=== PATIENT | female | born 1960 | race African-American/Black ===

== ENCOUNTER 2017-11-15 10:50 | Inpatient (IN) | payer OTHER ==
--- NOTE | 2017-11-15 14:15 | HP ---
Admission ROS [facility] Chief Complaint: i want to go to rehab Allergies/Adverse Reactions: Allergies Allergy/AdvReac Type Severity Reaction Status Date / Time Penicillins Allergy Verified 11/15/17 14:11 History of Present Illness: 56 years old female with long history of cocaine and nicotine dependence has hypertension positive ppd and depression is admitted to rehab Exam Limitations: No Limitations - Ebola screening Have you traveled outside of the country in the last 21 days: No Have you had contact with anyone from an Ebola affected area: No Have you been sick,other than usual withdrawal symptoms: No Do you have a fever: No - Review of Systems Constitutional: Loss of Appetite, Unintentional Wgt. Loss, Unexplained wgt Loss EENT: reports: No Symptoms Reported Respiratory: reports: No Symptoms reported Cardiac: reports: No Symptoms Reported GI: reports: No Symptoms Reported : reports: No Symptoms Reported Musculoskeletal: reports: No Symptoms Reported Integumentary: reports: No Symptoms Reported Neuro: reports: No Symptoms reported Endocrine: reports: No Symptoms Reported Hematology: reports: No Symptoms Reported Psychiatric: reports: Judgement Intact, Orientated x3, Depressed Other Systems: Reviewed and Negative Patient History - Patient Medical History Hx Anemia: No Hx Asthma: No Hx Chronic Obstructive Pulmonary Disease (COPD): No Hx Cancer: No Hx Cardiac Disorders: No Hx Congestive Heart Failure: No Hx Hypertension: Yes Hx Hypercholesterolemia: No Hx Pacemaker: No HX Cerebrovascular Accident: No Hx Seizures: No Hx Dementia: No Hx Diabetes: No Hx Gastrointestinal Disorders: No Hx Liver Disease: No Hx Genitourinary Disorders: No Hx Sexually Transmitted Disorders: No Hx Renal Disease (ESRD): No Hx Thyroid Disease: No Hx Human Immunodeficiency Virus (HIV): No Hx Hepatitis C: No Hx Depression: Yes Hx Suicide Attempt: No Hx Bipolar Disorder: No Hx Schizophrenia: No - Patient Surgical History Past Surgical History: Yes Hx Neurologic Surgery: No Hx Cataract Extraction: No Hx Cardiac Surgery: No Hx Lung Surgery: No Hx Breast Surgery: No Hx Breast Biopsy: No Hx Abdominal Surgery: No Hx Appendectomy: No Hx Cholecystectomy: No Hx Genitourinary Surgery: No Hx Section: No Hx Orthopedic Surgery: No Hx Hysterectomy: No Other Surgical History: 2004 endometric cyst removed Anesthesia Reaction: No - PPD History Previous Implant?: Yes Documented Results: Positive w/proof Implanted On Prior R Admission?: No PPD to be Administered?: No - Reproductive History Patient is a Female of Child Bearing Age (11 -55 yrs old): No Last Menstrual Period: 11/15/08 Patient : No - Smoking Cessation Smoking history: Current every day smoker Have you smoked in the past 12 months: Yes Aproximately how many cigarettes per day: 15 Cigars Per Day: 0 Hx Chewing Tobacco Use: No Initiated information on smoking cessation: Yes 'Breaking Loose' booklet given: 11/15/17 - Substance & Tx. History Hx Alcohol Use: No Hx Substance Use: Yes Substance Use Type: Cocaine Hx Substance Use Treatment: Yes (2012 [facility]) - Substances Abused Cocaine Route: Smoking Frequency: Daily Amount used: 70$ Age of first use: 25 Date of Last Use: 11/15/17 Family Disease History - Family Disease History Family Disease History: Respiratory: Mother, Other: Father () Admission Physical Exam [facility] - Vital Signs Vital Signs: Vital Signs - 24 hr 11/15/17 11:21 Temperature 98.1 F Pulse Rate 76 Respiratory 20 Rate Blood Pressure 149/91 - Physical General Appearance: Yes: No Apparent Distress, Appropriately Dressed, Thin HEENTM: Yes: Hearing grossly Normal, Normocephalic, Normal Voice Respiratory: Yes: Chest Non-Tender, Lungs Clear, Normal Breath Sounds, No Respiratory Distress, No Accessory Muscle Use Neck: Yes: Supple, Trachea in good position Breast: Yes: Breasts Symetrical Cardiology: Yes: Regular Rhythm, Regular Rate, S1, S2 Abdominal: Yes: Normal Bowel Sounds, Non Tender, Flat Genitourinary: Yes: Within Normal Limits Back: Yes: Normal Inspection Musculoskeletal: Yes: full range of Motion, Gait Steady Extremities: Yes: Normal Inspection, Normal Range of Motion, Non-Tender Neurological: Yes: Fully Oriented, Alert, Motor Strength 5/5, Normal Response, Depressed Affect Integumentary: Yes: Warm Lymphatic: Yes: Within Normal Limits - Diagnostic (1) Cocaine dependence with withdrawal Current Visit: Yes Status: Acute (2) Hypertension Current Visit: Yes Status: Chronic Qualifiers: Hypertension type: essential hypertension Qualified Code(s): I10 - Essential (primary) hypertension (3) Positive PPD, treated Current Visit: Yes Status: Resolved (4) Nicotine dependence Current Visit: Yes Status: Acute Qualifiers: Nicotine product type: cigarettes Substance use status: in withdrawal Qualified Code(s): F17.213 - Nicotine dependence, cigarettes, with withdrawal (5) Depression (emotion) Current Visit: Yes Status: Suspected Qualifiers: Depression Type: dysthymia Qualified Code(s): F34.1 - Dysthymic disorder Cleared for Admission [facility] - Detox or Rehab [facility] Level of Care: Observation Bed Detox Regimen/Protocol: Not Applicable Claeared for Rehab Admission: Yes [facility] Breath Alcohol Content Breath Alcohol Content: 0 Urine Pregancy Test - Result Urine Test Results: Negative- NO Line Present Urine Drug Screen - Control Is Test Valid: Yes - Results Drug Screen Negative: No Urine Drug Screen Results: [facility]IUS[facility]-Cocaine Inpatient Rehab Admission - Initial Determination Are CD services needed?: Yes Free of communicable disease: Yes Not in need of hospitalization: Yes - Rehab Admission Criteria Previous failed treatment: Yes Poor recovery environment: Yes Comorbidities: No Lacks judgement: Yes Patient is meeting Inpatient Rehab admission criteria:: Yes
[2017-11-15] MEDS ORDERED: MAGNESIUM HYDROX 2400MG/30ML ORAL SUSPENSION 30 ML CUP PO PRN (14:19)
[2017-11-15] MEDS ORDERED: IBUPROFEN 400 MG TABLET (FP) PO PRN (14:19)
[2017-11-15] MEDS ORDERED: guaiFENesin/D-METHORPHAN HB 10 ML UNIT-DOSE CUPS PO PRN (14:19)
[2017-11-15] MEDS ORDERED: LOPERAMIDE HCL 2 MG CAPSULE PO PRN (14:19)
[2017-11-15] MEDS ORDERED: ACETAMINOPHEN 325 MG TABLET (FP) PO PRN (14:19)
[2017-11-15] MEDS ORDERED: P-EPHED 60MG/TRIPROLIDI 2.5MG TABLET PO PRN (14:19)
[2017-11-15] MEDS ORDERED: MAGNESIUM CITRATE 300 ML BOTTLE PO PRN (14:19)
[2017-11-15] MEDS ORDERED: MENTHOL/PHENOL 1 EACH UD MM PRN (14:19)
[2017-11-15] MEDS ORDERED: LOSARTAN 50MG/HCTZ 12.5MG 1 TAB (FP) PO SCH (14:30)
[2017-11-15] MEDS: amLODIPine BESYLATE 10 MG TABLET (FP) PO SCH (17:25)
[2017-11-15] MEDS: ASPIRIN 81 MG CHEWABLE TABLETS PO SCH (17:25)
[2017-11-15] MEDS: LOSARTAN 50MG/HCTZ 12.5MG 1 TAB (FP) PO SCH (17:25)
--- NOTE | 2017-11-15 21:43 | PN ---
S Progress Note Note: Psychiatric nurse practitioner medical sonographer note: Call received by RN requesting patient's mirtzapine 15mg. Chart reviewed. Mirtzapine 15mg qhs ordered.
[2017-11-15] MEDS: MIRTAZAPINE 15 MG TABLET (FP) PO SCH (21:47)
[2017-11-15] MEDS: THIAMINE HCL 100 MG TABLET (FP) PO SCH (21:47)
[2017-11-15] MEDS: NICOTINE 21 MG/24 HOURS TOPICAL PATCH TD SCH (21:50)
[2017-11-15] MEDS ORDERED: MELATONIN 5 MG TABLETS PO PRN (22:00)
[2017-11-16] MEDS ORDERED: PT OWN MED DRAWER 7, Y5N ONE (08:27)
--- NOTE | 2017-11-16 10:07 | HP ---
Psychiatrist Admission - Data Date of interview: 11/16/17 Admission source: [facility] Identifying data: This is the first 3E inpatient rehabilitation admission for this 56 year old female unemmployed supported, residing in [place]. Medical History: h/o endometrial polyp removal in 2004,tonsillectomy HTN, smokes 10 cigaretets a day. Psychiatric History: Patient reports was diagnosed with depression, first episode was in 2004, saw the psychiatrist in outpatient setting, reports one psychiatric hospitalization in 2011 at [facility] [place] for 5 days, treated with Wellbutrin and Remeron, was on and off treatment, then was under the care of the psychiatrist at [facility], last took medcation in 12/07, not requested to continue Remeron. Physical/Sexual Abuse/Trauma History: Denies history of sexual, physical and verbal abuse. Vital Signs: Vital Signs - 24 hr 11/15/17 11/15/17 11/16/17 11:21 18:30 00:30 Temperature 98.1 F 98.5 F Pulse Rate 76 79 Respiratory 20 18 16 Rate Blood Pressure 149/91 156/81 11/16/17 11/16/17 11/16/17 03:30 07:16 07:17 Temperature 97.5 F L 97.5 F L Pulse Rate 62 62 Respiratory 16 18 18 Rate Blood Pressure 159/95 155/97 11/16/17 11/16/17 07:38 09:07 Temperature 97.5 F L Pulse Rate 60 93 H Respiratory 18 Rate Blood Pressure 148/91 130/82 Allergies/Adverse Reactions: Allergies Allergy/AdvReac Type Severity Reaction Status Date / Time Penicillins Allergy Verified 11/15/17 14:11 Date of last physical exam: 11/15/17 Concur with the findings of this exam: Yes - Substance Abuse/Tx History Hx Alcohol Use: No Hx Substance Use: Yes Substance Use Type: Cocaine (age at first use 25, daily use $70) Hx Substance Use Treatment: Yes (2012 [facility]) Mental Status Exam - Mental Status Exam Alert and Oriented to: Time, Place, Person Cognitive Function: Good Patient Appearance: Well Groomed Mood: Apathetic, Depressed Affect: Appropriate, Mood Congruent Patient Behavior: Appropriate, Cooperative Speech Pattern: Clear Voice Loudness: Normal Thought Process: Goal Oriented Thought Disorder: Not Present Hallucinations: Denies Suicidal Ideation: Denies Homicidal Ideation: Denies Insight/Judgement: Fair Sleep: Fair Appetite: Fair, Weight loss Muscle strength/Tone: Normal Gait/Station: Normal Psychiatric Findings - Problem List ([place] 1, 2,3) (1) Cocaine dependence Current Visit: Yes Status: Acute (2) Nicotine dependence Current Visit: Yes Status: Acute Qualifiers: Nicotine product type: cigarettes Substance use status: in withdrawal Qualified Code(s): F17.213 - Nicotine dependence, cigarettes, with withdrawal (3) Hypertension Current Visit: Yes Status: Chronic Qualifiers: Hypertension type: essential hypertension Qualified Code(s): I10 - Essential (primary) hypertension (4) Depressive disorder Current Visit: Yes Status: Acute - Initial Treatment Plan Initial Treatment Plan: to continue Remeron 15 mg poi hs, monitor progress as needed.
[2017-11-16 10:23] LABS: HEMOGLOBIN 13.5 GM/dL (10.7-15.3); MCH 25.9 pg (25.7-33.7); MCHC 32.9 g/dl (32.0-36.0); MEAN CELL VOLUME 78.7 fl (80-96); MEAN PLT VOLUME 11.4 fl (7.5-11.1); PLATELET COUNT 159 K/MM3 (134-434); RBC 5.21 M/mm3 (3.60-5.2); RDW 15.2 % (11.6-15.6); WHITE BLOOD COUNT 9.2 K/mm3 (4.0-10.0)
[2017-11-16] MEDS: ASPIRIN 81 MG CHEWABLE TABLETS PO SCH (10:27)
[2017-11-16] MEDS: amLODIPine BESYLATE 10 MG TABLET (FP) PO SCH (10:27)
[2017-11-16] MEDS: LOSARTAN 50MG/HCTZ 12.5MG 1 TAB (FP) PO SCH (10:27)
[2017-11-16] MEDS: PRENATAL VITAMINS W/ FOLIC ACID TABLET (FP) PO SCH (10:27)
[2017-11-16] MEDS: NICOTINE 21 MG/24 HOURS TOPICAL PATCH TD SCH (10:28)
[2017-11-16 10:42] LABS: CHLORIDE 108 mmol/L (98-107); POTASSIUM 3.2 mmol/L (3.5-5.1); SODIUM 143 mmol/L (136-145)
[2017-11-16 11:04] LABS: ALBUMIN 4.5 g/dl (3.4-5.0); ALK PHOS 158 U/L (45-117); ANION GAP 7 (8-16); BLOOD UREA NITROGEN 11 mg/dL (7-18); CALCIUM 9.1 mg/dL (8.5-10.1); CO2 28 mmol/L (21-32); CREATININE 1.1 mg/dL (0.55-1.02); GLUCOSE,RANDOM 100 mg/dL (74-106); SGOT/AST 20 U/L (15-37); SGPT/ALT 22 U/L (12-78); TOT PROT 7.3 g/dl (6.4-8.2)
[2017-11-16 12:43] LABS: RPR REACTIVE 1:4 (NONREACTIVE)
[2017-11-16 15:00] LABS: TREPONEMA ANTIBODY NON REACTIVE (NONREACTIVE)
--- NOTE | 2017-11-16 16:16 | EKG ---
Test Reason : Blood Pressure : / mmHG Vent. Rate : 055 BPM Atrial Rate : 055 BPM P-R Int : 190 ms QRS Dur : 108 ms QT Int : 430 ms P-R-T Axes : 031 080 076 degrees QTc Int : 411 ms SINUS BRADYCARDIA MINIMAL VOLTAGE CRITERIA FOR LVH, MAY BE NORMAL VARIANT T WAVE ABNORMALITY, CONSIDER ANTERIOR ISCHEMIA ABNORMAL ECG NO PREVIOUS ECGS AVAILABLE Confirmed by FARIDA BRIONES MD ([id number]) on 11/16/2017 4:16:04 PM Referred By: Confirmed By:FARIDA BRIONES MD
[2017-11-16] MEDS: MIRTAZAPINE 15 MG TABLET (FP) PO SCH (21:40)
[2017-11-16] MEDS: THIAMINE HCL 100 MG TABLET (FP) PO SCH (21:40)
[2017-11-16] MEDS: MAG HYDROX/AL HYDROX/SIMETH 30 ML UNIT-DOSE CUP PO PRN (21:42)
[2017-11-16] MEDS: NICOTINE POLACRILEX 4 MG GUM BUC PRN (21:43)
--- NOTE | 2017-11-17 06:52 | PN ---
[facility] Progress Note Note: Patient's potassium level is 3.2mmol/L. Patient is asymptomatic Vital Signs Temperature 97.4 F L 11/17/17 06:45 Pulse Rate 66 11/17/17 06:45 Respiratory Rate 16 11/17/17 06:45 Blood Pressure 139/85 11/17/17 06:45 O2 Sat by Pulse Oximetry (%) Laboratory Last Values WBC 9.2 K/mm3 (4.0-10.0) 11/16/17 05:50 RBC 5.21 M/mm3 (3.60-5.2) H 11/16/17 05:50 Hgb 13.5 GM/dL (10.7-15.3) 11/16/17 05:50 Hct 41.0 % (32.4-45.2) 11/16/17 05:50 MCV 78.7 fl (80-96) L 11/16/17 05:50 MCH 25.9 pg (25.7-33.7) 11/16/17 05:50 MCHC 32.9 g/dl (32.0-36.0) 11/16/17 05:50 RDW 15.2 % (11.6-15.6) 11/16/17 05:50 Plt Count 159 K/MM3 (134-434) 11/16/17 05:50 MPV 11.4 fl (7.5-11.1) H 11/16/17 05:50 Sodium 143 mmol/L (136-145) 11/16/17 05:50 Potassium 3.2 mmol/L (3.5-5.1) L 11/16/17 05:50 Chloride 108 mmol/L (98-107) H 11/16/17 05:50 Carbon Dioxide 28 mmol/L (21-32) 11/16/17 05:50 Anion Gap 7 (8-16) L 11/16/17 05:50 BUN 11 mg/dL (7-18) 11/16/17 05:50 Creatinine 1.1 mg/dL (0.55-1.02) H 11/16/17 05:50 Creat Clearance w eGFR 51.20 (>60) 11/16/17 05:50 Random Glucose 100 mg/dL (74-106) 11/16/17 05:50 Calcium 9.1 mg/dL (8.5-10.1) 11/16/17 05:50 Total Bilirubin 1.0 mg/dL (0.2-1.0) 11/16/17 05:50 AST 20 U/L (15-37) 11/16/17 05:50 ALT 22 U/L (12-78) 11/16/17 05:50 Alkaline Phosphatase 158 U/L (45-117) H 11/16/17 05:50 Total Protein 7.3 g/dl (6.4-8.2) 11/16/17 05:50 Albumin 4.5 g/dl (3.4-5.0) 11/16/17 05:50 RPR Titer Reactive 1:4 (NONREACTIVE) H 11/16/17 05:50 T.pallidum Ab ([facility]) Non reactive (NONREACTIVE) 11/16/17 05:50 Action: Potassium chloride oral 40 mEq x 3 days ordered
[2017-11-17] MEDS ORDERED: PT OWN MED DRAWER 7, Y5N ONE (09:09)
[2017-11-17] MEDS: POTASSIUM CHLORIDE TABS 20 MEQ TABLET.ER (FP) PO SCH (10:42)
[2017-11-17] MEDS: PRENATAL VITAMINS W/ FOLIC ACID TABLET (FP) PO SCH (10:43)
[2017-11-17] MEDS: amLODIPine BESYLATE 10 MG TABLET (FP) PO SCH (10:43)
[2017-11-17] MEDS: LOSARTAN 50MG/HCTZ 12.5MG 1 TAB (FP) PO SCH (10:44)
[2017-11-17] MEDS: ASPIRIN 81 MG CHEWABLE TABLETS PO SCH (10:44)
[2017-11-17] MEDS: NICOTINE 21 MG/24 HOURS TOPICAL PATCH TD SCH (10:45)
--- NOTE | 2017-11-17 14:56 | PN ---
[facility] Progress Note Note: CXR results negative for acute pathology.
[2017-11-17] MEDS: MAG HYDROX/AL HYDROX/SIMETH 30 ML UNIT-DOSE CUP PO PRN (18:54)
[2017-11-17] MEDS: THIAMINE HCL 100 MG TABLET (FP) PO SCH (21:32)
[2017-11-17] MEDS: MIRTAZAPINE 15 MG TABLET (FP) PO SCH (21:33)
[2017-11-18] MEDS ORDERED: PT OWN MED DRAWER 7, Y5N ONE (09:03)
[2017-11-18] MEDS: NICOTINE 21 MG/24 HOURS TOPICAL PATCH TD SCH (10:07)
[2017-11-18] MEDS: ASPIRIN 81 MG CHEWABLE TABLETS PO SCH (10:07)
[2017-11-18] MEDS: POTASSIUM CHLORIDE TABS 20 MEQ TABLET.ER (FP) PO SCH (10:07)
[2017-11-18] MEDS: PRENATAL VITAMINS W/ FOLIC ACID TABLET (FP) PO SCH (10:07)
[2017-11-18] MEDS: amLODIPine BESYLATE 10 MG TABLET (FP) PO SCH (10:07)
[2017-11-18] MEDS: NICOTINE POLACRILEX 4 MG GUM BUC PRN (10:07)
[2017-11-18] MEDS: LOSARTAN 50MG/HCTZ 12.5MG 1 TAB (FP) PO SCH (10:08)
[2017-11-18 15:17] LABS: URINE APPEARANCE CLOUDY; URINE BILIRUBIN NEGATIVE (<2.0 mg/dL); URINE BLOOD NEGATIVE (NEGATIVE); URINE COLOR YELLOW; URINE GLUCOSE (UA) NEGATIVE (NEGATIVE); URINE KETONE NEGATIVE (NEGATIVE); URINE LEUK ESTERASE NEGATIVE (NEGATIVE); URINE NITRITE NEGATIVE (NEGATIVE); URINE PROTEIN NEGATIVE (NEGATIVE); URINE UROBILINOGEN NEGATIVE mg/dL (0.2-1.0)
[2017-11-18] MEDS: THIAMINE HCL 100 MG TABLET (FP) PO SCH (21:30)
[2017-11-18] MEDS: MIRTAZAPINE 15 MG TABLET (FP) PO SCH (21:30)
[2017-11-19] MEDS ORDERED: PT OWN MED DRAWER 7, Y5N ONE (08:45)
[2017-11-19] MEDS: ASPIRIN 81 MG CHEWABLE TABLETS PO SCH (10:02)
[2017-11-19] MEDS: amLODIPine BESYLATE 10 MG TABLET (FP) PO SCH (10:02)
[2017-11-19] MEDS: LOSARTAN 50MG/HCTZ 12.5MG 1 TAB (FP) PO SCH (10:02)
[2017-11-19] MEDS: POTASSIUM CHLORIDE TABS 20 MEQ TABLET.ER (FP) PO SCH (10:02)
[2017-11-19] MEDS: PRENATAL VITAMINS W/ FOLIC ACID TABLET (FP) PO SCH (10:02)
[2017-11-19] MEDS: NICOTINE 21 MG/24 HOURS TOPICAL PATCH TD SCH (10:03)
[2017-11-19] MEDS: THIAMINE HCL 100 MG TABLET (FP) PO SCH (21:40)
[2017-11-19] MEDS: MIRTAZAPINE 15 MG TABLET (FP) PO SCH (21:40)
[2017-11-20] MEDS: LOSARTAN 50MG/HCTZ 12.5MG 1 TAB (FP) PO SCH (10:21)
[2017-11-20] MEDS: NICOTINE 21 MG/24 HOURS TOPICAL PATCH TD SCH (10:21)
[2017-11-20] MEDS: amLODIPine BESYLATE 10 MG TABLET (FP) PO SCH (10:21)
[2017-11-20] MEDS: ASPIRIN 81 MG CHEWABLE TABLETS PO SCH (10:21)
[2017-11-20] MEDS: PRENATAL VITAMINS W/ FOLIC ACID TABLET (FP) PO SCH (10:21)
[2017-11-20] MEDS ORDERED: PT OWN MED DRAWER 7, Y5N ONE (10:23)
[2017-11-20 14:45] LABS: ANION GAP 8 (8-16); BLOOD UREA NITROGEN 20 mg/dL (7-18); CALCIUM 9.6 mg/dL (8.5-10.1); CHLORIDE 105 mmol/L (98-107); CO2 30 mmol/L (21-32); GLUCOSE,RANDOM 86 mg/dL (74-106); POTASSIUM 4.3 mmol/L (3.5-5.1); SODIUM 143 mmol/L (136-145)
[2017-11-20] MEDS: MIRTAZAPINE 15 MG TABLET (FP) PO SCH (21:34)
[2017-11-20] MEDS: THIAMINE HCL 100 MG TABLET (FP) PO SCH (21:34)
[2017-11-21 07:10] VITALS: TEMP 98
[2017-11-21] MEDS: PRENATAL VITAMINS W/ FOLIC ACID TABLET (FP) PO SCH (10:29)
[2017-11-21] MEDS: amLODIPine BESYLATE 10 MG TABLET (FP) PO SCH (10:29)
[2017-11-21] MEDS: ASPIRIN 81 MG CHEWABLE TABLETS PO SCH (10:29)
[2017-11-21] MEDS: LOSARTAN 50MG/HCTZ 12.5MG 1 TAB (FP) PO SCH (10:30)
[2017-11-21] MEDS: NICOTINE 21 MG/24 HOURS TOPICAL PATCH TD SCH (10:31)
[2017-11-21] MEDS ORDERED: PT OWN MED DRAWER 7, Y5N ONE (10:32)
[2017-11-21 10:34] VITALS: BP 123/77; PULSE 91
[2017-11-21] MEDS: THIAMINE HCL 100 MG TABLET (FP) PO SCH (21:34)
[2017-11-21] MEDS: MIRTAZAPINE 15 MG TABLET (FP) PO SCH (21:35)
== END 2017-11-22 04:05 | disposition left against medical advice (07) | DRG 770 ==
LOC: YASAS 10:50 → Y3E 14:58
PROVIDERS: ADMIT Psychiatry & Neurology Psychiatry; ATTEND Psychiatry & Neurology Psychiatry
PROC: HZ42ZZZ Group Counseling for Substance Abuse Treatment, Cognitive-Behavioral (ICD-10-PCS; principal; 2017-11-15)
DX: F14.20 Cocaine dependence, uncomplicated (principal); F34.1 Dysthymic disorder; I10 Essential (primary) hypertension; R76.11 Nonspecific reaction to tuberculin skin test without active tuberculosis; Z88.0 Allergy status to penicillin
CPT/HCPCS: 36415; 71046-TC-FY; 80048; 80053; 81003; 85027; 86593; 86780; 93005; 93010

== ENCOUNTER 2018-10-01 12:25 | Inpatient (IN) | payer OTHER ==
[2018-10-01 14:34] VITALS: BMI 17.9
--- NOTE | 2018-10-01 15:36 | HP ---
CIWA Score - Admission Criteria [facility] Guidelines: Admission for Medically Managed Detox: Requires at least one of the followin. CIWA greater than 12 2. Seizures within the past 24 hours 3. Delirium tremens within the past 24 hours 4. Hallucinations within the past 24 hours 5. Acute intervention needed for co occurring medical disorder 6. Acute intervention needed for co occurring psychiatric disorder 7. Severe withdrawal that cannot be handled at a lower level of care (continued vomiting, continued diarrhea, abnormal vital signs) requiring intravenous medication and/or fluids 8. Admission ROS S - HPI Chief Complaint: " crack /cocaine rehab" Allergies/Adverse Reactions: Allergies Allergy/AdvReac Type Severity Reaction Status Date / Time Penicillins Allergy Verified 11/15/17 14:11 History of Present Illness: 57 yo female with hx of cocaine dependence, hypertension, positive PPD, Insomnia and depression is here seeking rehabilitation. Denies seizures or blackouts. Denies suicidal / homicidal ideation. Denies any significant period of sobriety. Exam Limitations: No Limitations - Ebola screening Have you traveled outside of the country in the last 21 days: No Have you had contact with anyone from an Ebola affected area: No Have you been sick,other than usual withdrawal symptoms: No Do you have a fever: No - Review of Systems Constitutional: Loss of Appetite, Changes in sleep, Unintentional Wgt. Loss EENT: reports: No Symptoms Reported Respiratory: reports: No Symptoms reported Cardiac: reports: No Symptoms Reported GI: reports: No Symptoms Reported : reports: No Symptoms Reported Musculoskeletal: reports: No Symptoms Reported, Joint Stiffness Neuro: reports: No Symptoms reported Endocrine: reports: No Symptoms Reported Hematology: reports: Anemia Psychiatric: reports: Orientated x3, Anxious Other Systems: Reviewed and Negative Patient History - Patient Medical History Hx Anemia: Yes Hx Asthma: No Hx Chronic Obstructive Pulmonary Disease (COPD): No Hx Cancer: No Hx Cardiac Disorders: No Hx Congestive Heart Failure: No Hx Hypertension: Yes (ON meds.) Hx Hypercholesterolemia: No Hx Pacemaker: No HX Cerebrovascular Accident: No Hx Seizures: No Hx Dementia: No Hx Diabetes: No Hx Gastrointestinal Disorders: No Hx Liver Disease: No Hx Genitourinary Disorders: No Hx Sexually Transmitted Disorders: Yes (syphilis treated.) Hx Renal Disease (ESRD): No Hx Thyroid Disease: No Hx Human Immunodeficiency Virus (HIV): No Hx Hepatitis C: No Hx Depression: Yes Hx Suicide Attempt: No Hx Bipolar Disorder: No Hx Schizophrenia: No - Patient Surgical History Past Surgical History: Yes Hx Neurologic Surgery: No Hx Cataract Extraction: No Hx Cardiac Surgery: No Hx Lung Surgery: No Hx Breast Surgery: No Hx Breast Biopsy: No Hx Abdominal Surgery: No Hx Appendectomy: No Hx Cholecystectomy: No Hx Genitourinary Surgery: No Hx Section: No Hx Orthopedic Surgery: No Hx Hysterectomy: No Other Surgical History: 2004 endometric cyst removed Anesthesia Reaction: No - PPD History Previous Implant?: No Documented Results: Negative w/proof - Reproductive History Patient is a Female of Child Bearing Age (11 -55 yrs old): No Last Menstrual Period: 11/15/08 Patient : No - Smoking Cessation Smoking history: Current every day smoker (20) Have you smoked in the past 12 months: Yes Aproximately how many cigarettes per day: 10 Cigars Per Day: 0 Hx Chewing Tobacco Use: No Initiated information on smoking cessation: Yes 'Breaking Loose' booklet given: 10/01/18 - Substance & Tx. History Hx Alcohol Use: No Hx Substance Use: Yes Substance Use Type: Cocaine Hx Substance Use Treatment: Yes (Rehab [facility] January 2018) - Substances Abused crack /cocaine Route: Smoking Frequency: Daily Amount used: Reports approximate $500 - $700 a week Age of first use: 25 Date of Last Use: 10/07/18 Family Disease History - Family Disease History Family Disease History: Heart Disease: Mother, Respiratory: Mother, Other: Father () Admission Physical Exam [facility] - Vital Signs Vital Signs: Vital Signs - 24 hr 10/01/18 14:31 Temperature 99.5 F Pulse Rate 99 H Respiratory 18 Rate Blood Pressure 138/93 - Physical General Appearance: Yes: Appropriately Dressed, Thin, Anxious HEENTM: Yes: EOMI, Hearing grossly Normal, Normal ENT Inspection, Normocephalic , Normal Voice, HENRY, Pharynx Normal, Tm's normal Respiratory: Yes: Chest Non-Tender, Lungs Clear, Normal Breath Sounds, No Respiratory Distress, No Accessory Muscle Use Neck: Yes: Within Normal Limits Breast: Yes: Breast Exam Deferred Cardiology: Yes: Regular Rhythm, Regular Rate Abdominal: Yes: Within Normal Limits Genitourinary: Yes: Within Normal Limits Back: Yes: Normal Inspection Musculoskeletal: Yes: full range of Motion, Gait Steady, Pelvis Stable Extremities: Yes: Normal Capillary Refill, Normal Inspection, Normal Range of Motion, Non-Tender Neurological: Yes: piano teacher II-XII NML intact, Fully Oriented, Alert, Motor Strength 5/5, Depressed Affect Integumentary: Yes: Normal Color, Dry, Warm Lymphatic: Yes: Within Normal Limits - Diagnostic (1) Weight loss Current Visit: Yes Status: Acute (2) Cocaine dependence Current Visit: Yes Status: Chronic Qualifiers: Substance use status: uncomplicated Qualified Code(s): F14.20 - Cocaine dependence, uncomplicated (3) Hypertension Current Visit: Yes Status: Chronic Qualifiers: Hypertension type: essential hypertension Qualified Code(s): I10 - Essential (primary) hypertension (4) Nicotine dependence Current Visit: Yes Status: Chronic Qualifiers: Nicotine product type: cigarettes Substance use status: in withdrawal Qualified Code(s): F17.213 - Nicotine dependence, cigarettes, with withdrawal (5) Positive PPD, treated Current Visit: Yes Status: Chronic [facility] Breath Alcohol Content Breath Alcohol Content: 0 Urine Pregancy Test - Result Urine Test Results: Negative - NO Line Present Urine Drug Screen - Results Drug Screen Negative: No Urine Drug Screen Results: [facility]US[facility]-Cocaine Inpatient Rehab Admission - Rehab Decision to Admit Inpatient rehab admission?: Yes - Initial Determination Are CD services needed?: Yes Free of communicable disease: Yes Not in need of hospitalization: Yes - Rehab Admission Criteria Previous failed treatment: Yes Poor recovery environment: Yes Comorbidities: Yes Lacks judgement: Yes Patient is meeting Inpatient Rehab admission criteria:: Yes
[2018-10-01] MEDS ORDERED: P-EPHED 60MG/TRIPROLIDI 2.5MG TABLET PO PRN (15:50)
[2018-10-01] MEDS ORDERED: ACETAMINOPHEN 325 MG TABLET (FP) PO PRN (15:50)
[2018-10-01] MEDS ORDERED: MAGNESIUM CITRATE 300 ML BOTTLE PO PRN (15:50)
[2018-10-01] MEDS ORDERED: MAG HYDROX/AL HYDROX/SIMETH 30 ML UNIT-DOSE CUP PO PRN (15:50)
[2018-10-01] MEDS ORDERED: MAGNESIUM HYDROX 2400MG/30ML ORAL SUSPENSION 30 ML CUP PO PRN (15:50)
[2018-10-01] MEDS ORDERED: MENTHOL/PHENOL 1 EACH UD MM PRN (15:50)
[2018-10-01] MEDS ORDERED: guaiFENesin 200 MG/10 ML 10 ML UNIT-DOSE CUPS PO PRN (15:50)
[2018-10-01] MEDS ORDERED: LOPERAMIDE HCL 2 MG CAPSULE PO PRN (15:50)
[2018-10-01] MEDS: HYDROCHLOROTHIAZIDE 12.5 MG CAPSULE (FP) PO SCH (19:58)
[2018-10-01] MEDS: THIAMINE HCL 100 MG TABLET (FP) PO SCH (21:58)
[2018-10-02] MEDS: PRENATAL VITAMINS W/ FOLIC ACID TABLET (FP) PO SCH (10:20)
[2018-10-02] MEDS: HYDROCHLOROTHIAZIDE 12.5 MG CAPSULE (FP) PO SCH (10:20)
[2018-10-02] MEDS: ASPIRIN 81 MG CHEWABLE TABLETS PO SCH (10:20)
[2018-10-02] MEDS: amLODIPine BESYLATE 10 MG TABLET (FP) PO SCH (10:20)
[2018-10-02 10:21] LABS: HEMATOCRIT 43.5 % (32.4-45.2); HEMOGLOBIN 14.4 GM/dL (10.7-15.3); MCH 26.5 pg (25.7-33.7); MCHC 33.1 g/dl (32.0-36.0); MEAN CELL VOLUME 79.8 fl (80-96); MEAN PLT VOLUME 10.3 fl (7.5-11.1); PLATELET COUNT 174 K/MM3 (134-434); RBC 5.45 M/mm3 (3.60-5.2); RDW 14.4 % (11.6-15.6)
[2018-10-02 10:28] LABS: ALBUMIN 3.9 g/dl (3.4-5.0); ALK PHOS 217 U/L (45-117); ANION GAP 7 MMOL/L (8-16); BILIRUBIN,TOTAL 0.8 mg/dL (0.2-1); BLOOD UREA NITROGEN 11 mg/dL (7-18); CALCIUM 9.5 mg/dL (8.5-10.1); CHLORIDE 110 mmol/L (98-107); CO2 25 mmol/L (21-32); CREATININE 1.1 mg/dL (0.55-1.3); GLUCOSE,RANDOM 146 mg/dL (74-106); POTASSIUM 3.4 mmol/L (3.5-5.1); SGOT/AST 59 U/L (15-37); SGPT/ALT 93 U/L (13-61); SODIUM 142 mmol/L (136-145); TOT PROT 7.5 g/dl (6.4-8.2)
--- NOTE | 2018-10-02 11:06 | PN ---
S Progress Note (SOAP) Subjective: patient requesting Ensure; Objective: 10/02/18 11:05 BMI 17/9; many missing teeth,difficulty chewing Assessment: 10/02/18 11:05 undernourished. Plan: Ensure ordered
[2018-10-02] MEDS ORDERED: FLU VACCINE QUAD 60 MCG/0.5 ML (MDV 18-19) IM ONE (12:00)
--- NOTE | 2018-10-02 14:15 | CONSULT ---
[facility] Psychiatric Consult - Data Date of interview: 10/02/18 Admission source: Self-referred Identifying data: Ms Bloom is a 57 years old Black female, mother of 2 children, unemployed with no source of income, homeless seeking inpatient rehab treatment for cocaine Substance Abuse History: Reports history of cocaine use. She startedcsmkoing crack cocaine at age 25, consume $500-700 worth weekly. Refer to patient services specialist'ssummary for further information Medical History: Significant for anemia, hypertension, history of treatment for PPD+, syphilis and surgery for endometric cyst in 2004. Smokes 10 cigarettes Psychiatric History: Reports that her first psychiatric contact was in 2004 while in treatment at [facility]. Claims that she was diagnosed with Bipolar Disorder and started on medications including Remeron. She is not currently getting OPD care. She attended [facility] in in the past. She used to be on Wellbutrin and other medications which she stopped. She is only taking Remeron 15 mg po HS. Reports one psychiatric hospitalization in 2011 at [facility] for depression. Denies previous suicidal attempt. At present, denies experiencing psychotic, manic or deprssive symptoms, S/H ideations. Physical/Sexual Abuse/Trauma History: Denies history of emotional, physical or sexual abuse as well as DV relationship. No service Additional Comment: Reports history of multiple previous arrests including one felony conviction. Denies current legal Mental Status Exam - Mental Status Exam Alert and Oriented to: Time, Place, Person Cognitive Function: Fair Patient Appearance: Disheveled Mood: Hopeful, Euthymic Affect: Appropriate Patient Behavior: Cooperative Speech Pattern: Clear Voice Loudness: Normal Thought Process: Intact Thought Disorder: Not Present Hallucinations: Denies Suicidal Ideation: Denies Homicidal Ideation: Denies Insight/Judgement: Fair Sleep: Poorly Appetite: Fair Muscle strength/Tone: Normal Gait/Station: Normal Psychiatric Findings - Problem List ([place] 1, 2,3) (1) Bipolar disorder Current Visit: Yes Status: Chronic (2) Substance-induced sleep disorder Current Visit: Yes Status: Acute (3) Cocaine dependence Current Visit: Yes Status: Acute Qualifiers: Substance use status: uncomplicated Qualified Code(s): F14.20 - Cocaine dependence, uncomplicated (4) Nicotine dependence Current Visit: Yes Status: Chronic Qualifiers: Nicotine product type: cigarettes Substance use status: in withdrawal Qualified Code(s): F17.213 - Nicotine dependence, cigarettes, with withdrawal (5) Hypertension Current Visit: Yes Status: Chronic Qualifiers: Hypertension type: essential hypertension Qualified Code(s): I10 - Essential (primary) hypertension (6) Positive PPD, treated Current Visit: Yes Status: Resolved (7) Anemia Current Visit: Yes Status: Resolved - Initial Treatment Plan Initial Treatment Plan: 1) Continue Remeron 15 mg po HS. 2) Continue inpatient rehabilitation
[2018-10-02 15:35] LABS: URINE APPEARANCE CLEAR; URINE BILIRUBIN NEGATIVE (<2.0 mg/dL); URINE COLOR YELLOW; URINE GLUCOSE (UA) NEGATIVE (NEGATIVE); URINE KETONE NEGATIVE (NEGATIVE); URINE LEUK ESTERASE NEGATIVE (NEGATIVE); URINE NITRITE NEGATIVE (NEGATIVE); URINE PROTEIN NEGATIVE (NEGATIVE)
[2018-10-02 15:59] LABS: RPR REACTIVE 1:2 (NONREACTIVE)
[2018-10-02 16:16] LABS: TREPONEMA ANTIBODY NON REACTIVE (NONREACTIVE)
[2018-10-02] MEDS: MIRTAZAPINE 15 MG TABLET (FP) PO SCH (21:22)
[2018-10-02] MEDS: THIAMINE HCL 100 MG TABLET (FP) PO SCH (21:22)
[2018-10-02] MEDS ORDERED: PT OWN MED DRAWER 7, Y5N ONE (21:59)
[2018-10-03] MEDS: amLODIPine BESYLATE 10 MG TABLET (FP) PO SCH (10:23)
[2018-10-03] MEDS: PRENATAL VITAMINS W/ FOLIC ACID TABLET (FP) PO SCH (10:24)
[2018-10-03] MEDS: ASPIRIN 81 MG CHEWABLE TABLETS PO SCH (10:24)
[2018-10-03] MEDS: HYDROCHLOROTHIAZIDE 12.5 MG CAPSULE (FP) PO SCH (10:24)
--- NOTE | 2018-10-03 15:42 | PN ---
[facility] Progress Note Note: LAB REVIEW: Laboratory Tests 10/01/18 10/02/18 10/02/18 13:10 08:30 08:30 WBC 3.0 L RBC 5.45 H Hgb 14.4 Hct 43.5 MCV 79.8 L MCH 26.5 MCHC 33.1 RDW 14.4 Plt Count 174 MPV 10.3 Sodium 142 Potassium 3.4 L Chloride 110 H Carbon Dioxide 25 Anion Gap 7 L BUN 11 Creatinine 1.1 Creat Clearance w eGFR 51.02 Random Glucose 146 H Calcium 9.5 Total Bilirubin 0.8 AST 59 H ALT 93 H Alkaline Phosphatase 217 H Total Protein 7.5 Albumin 3.9 Urine Color Yellow Urine Appearance Clear Urine pH 5.0 Ur Specific [place] 1.020 Urine Protein Negative Urine Glucose (UA) Negative Urine Ketones Negative Urine Blood Negative Urine Nitrite Negative Urine Bilirubin Negative Urine Urobilinogen 2.0 H Ur Leukocyte Esterase Negative RPR Titer T.pallidum Ab (A) 10/02/18 08:30 WBC RBC Hgb Hct MCV MCH MCHC RDW Plt Count MPV Sodium Potassium Chloride Carbon Dioxide Anion Gap BUN Creatinine Creat Clearance w eGFR Random Glucose Calcium Total Bilirubin AST ALT Alkaline Phosphatase Total Protein Albumin Urine Color Urine Appearance Urine pH Ur Specific [place] Urine Protein Urine Glucose (UA) Urine Ketones Urine Blood Urine Nitrite Urine Bilirubin Urine Urobilinogen Ur Leukocyte Esterase RPR Titer Reactive 1:2 H T.pallidum Ab ([facility]) Non reactive LAB RESULT NOTED. K+ = 3.4 RANDOM GLC = 146 MG/DL A:HYPERGLYCEMIA BORDERLINE HYPOKALEMIA PLAN:FASTING BGM X 3 DAYS WILL REPEAT CMP ON 10/05/18 D/C HYDROCHLOROTHIAZIDE 12.5 MG
[2018-10-03] MEDS: POTASSIUM CHLORIDE TABS 20 MEQ TABLET.ER (FP) PO SCH (18:30)
[2018-10-03] MEDS: THIAMINE HCL 100 MG TABLET (FP) PO SCH (21:22)
[2018-10-03] MEDS: MIRTAZAPINE 15 MG TABLET (FP) PO SCH (21:23)
[2018-10-03] MEDS: hydrOXYzine PAMOATE 25 MG CAPSULE (FP) PO PRN (21:23)
[2018-10-03] MEDS ORDERED: POTASSIUM CHLORIDE TABS 20 MEQ TABLET.ER (FP) PO SCH (22:00)
[2018-10-04] MEDS: PRENATAL VITAMINS W/ FOLIC ACID TABLET (FP) PO SCH (09:58)
[2018-10-04] MEDS: amLODIPine BESYLATE 10 MG TABLET (FP) PO SCH (09:58)
[2018-10-04] MEDS: POTASSIUM CHLORIDE TABS 20 MEQ TABLET.ER (FP) PO SCH ×2 (09:58→17:35)
[2018-10-04] MEDS: ASPIRIN 81 MG CHEWABLE TABLETS PO SCH (09:58)
[2018-10-04] MEDS ORDERED: PT OWN MED DRAWER 7, Y5N ONE (21:08)
[2018-10-04] MEDS: MIRTAZAPINE 15 MG TABLET (FP) PO SCH (21:16)
[2018-10-04] MEDS: THIAMINE HCL 100 MG TABLET (FP) PO SCH (21:16)
[2018-10-04] MEDS: hydrOXYzine PAMOATE 25 MG CAPSULE (FP) PO PRN (21:17)
[2018-10-05] MEDS: COLLOIDAL OATMEAL 1 BAR EACH TP PRN (07:13)
[2018-10-05] MEDS: IBUPROFEN 400 MG TABLET (FP) PO PRN (08:29)
[2018-10-05 10:04] LABS: ALBUMIN 3.7 g/dl (3.4-5.0); ALK PHOS 247 U/L (45-117); ANION GAP 9 MMOL/L (8-16); BILIRUBIN,TOTAL 0.6 mg/dL (0.2-1); BLOOD UREA NITROGEN 12 mg/dL (7-18); CHLORIDE 108 mmol/L (98-107); CO2 25 mmol/L (21-32); GLUCOSE,RANDOM 123 mg/dL (74-106); POTASSIUM 3.5 mmol/L (3.5-5.1); SGOT/AST 114 U/L (15-37); SGPT/ALT 158 U/L (13-61); SODIUM 142 mmol/L (136-145); TOT PROT 7.1 g/dl (6.4-8.2)
[2018-10-05] MEDS: PRENATAL VITAMINS W/ FOLIC ACID TABLET (FP) PO SCH (10:11)
[2018-10-05] MEDS: POTASSIUM CHLORIDE TABS 20 MEQ TABLET.ER (FP) PO SCH ×2 (10:11→18:15)
[2018-10-05] MEDS: amLODIPine BESYLATE 10 MG TABLET (FP) PO SCH (10:11)
[2018-10-05] MEDS: ASPIRIN 81 MG CHEWABLE TABLETS PO SCH (10:11)
--- NOTE | 2018-10-05 11:37 | PN ---
[facility] Progress Note Note: PATIENT PRESENTS WITH C/O RIGHT EAR PAIN X ONE DAY. PATIENT DENIES ORAL PAIN, FEVER, HEADACHE AND SORE THROAT. DOES NOT USE Q TIPS TO CLEAN EARS. Vital Signs Temperature 99.0 F 10/05/18 07:13 Pulse Rate 94 H 10/05/18 07:13 Respiratory Rate 18 10/05/18 07:13 Blood Pressure 137/94 10/05/18 07:13 O2 Sat by Pulse Oximetry (%) Laboratory Tests 10/01/18 10/02/18 10/02/18 13:10 08:30 08:30 WBC 3.0 L RBC 5.45 H Hgb 14.4 Hct 43.5 MCV 79.8 L MCH 26.5 MCHC 33.1 RDW 14.4 Plt Count 174 MPV 10.3 Sodium 142 Potassium 3.4 L Chloride 110 H Carbon Dioxide 25 Anion Gap 7 L BUN 11 Creatinine 1.1 Creat Clearance w eGFR 51.02 POC Glucometer Random Glucose 146 H Calcium 9.5 Total Bilirubin 0.8 AST 59 H ALT 93 H Alkaline Phosphatase 217 H Total Protein 7.5 Albumin 3.9 Urine Color Yellow Urine Appearance Clear Urine pH 5.0 Ur Specific [place] 1.020 Urine Protein Negative Urine Glucose (UA) Negative Urine Ketones Negative Urine Blood Negative Urine Nitrite Negative Urine Bilirubin Negative Urine Urobilinogen 2.0 H Ur Leukocyte Esterase Negative RPR Titer T.pallidum Ab ([facility]) 10/02/18 10/04/18 10/05/18 08:30 06:49 07:08 WBC RBC Hgb Hct MCV MCH MCHC RDW Plt Count MPV Sodium Potassium Chloride Carbon Dioxide Anion Gap BUN Creatinine Creat Clearance w eGFR POC Glucometer 89 88 Random Glucose Calcium Total Bilirubin AST ALT Alkaline Phosphatase Total Protein Albumin Urine Color Urine Appearance Urine pH Ur Specific [place] Urine Protein Urine Glucose (UA) Urine Ketones Urine Blood Urine Nitrite Urine Bilirubin Urine Urobilinogen Ur Leukocyte Esterase RPR Titer Reactive 1:2 H T.pallidum Ab ([facility]) Non reactive 10/05/18 08:40 WBC RBC Hgb Hct MCV MCH MCHC RDW Plt Count MPV Sodium 142 Potassium 3.5 Chloride 108 H Carbon Dioxide 25 Anion Gap 9 BUN 12 Creatinine 1.0 Creat Clearance w eGFR 56.95 POC Glucometer Random Glucose 123 H Calcium 9.0 Total Bilirubin 0.6 AST 114 H ALT 158 H Alkaline Phosphatase 247 H Total Protein 7.1 Albumin 3.7 Urine Color Urine Appearance Urine pH Ur Specific [place] Urine Protein Urine Glucose (UA) Urine Ketones Urine Blood Urine Nitrite Urine Bilirubin Urine Urobilinogen Ur Leukocyte Esterase RPR Titer T.pallidum Ab ([facility]) PE: ALERT AND ORIENTED X 3 SKIN WARM AND DRY RIGHT EAR + INFLAMMATION OF EAR CANAL AND TM, NO BULGING OR EXUDATE PRESENT LEFT EAR, MILD CERUMEN, TM PEARLY SKELTON, INTACT, NO EXUDATE NOTED EXT FULL ROM, AMB AD VENKAT A/P: RIGHT EAR OM ELEVATED LFTS WILL START OFLOXACIN EAR GTTS AD BID X 5 DAYS CONTINUE MOTRIN FOR HEADACHE/PAIN REPEAT LFTS 10/08/18 CONTINUE TO MONITOR
[2018-10-05] MEDS ORDERED: PT OWN MED DRAWER 7, Y5N ONE (16:53)
[2018-10-05] MEDS: OFLOXACIN 0.3% OTIC SOLUTION 5 ML BOTTLE AD SCH ×2 (21:01→21:30)
[2018-10-05] MEDS: THIAMINE HCL 100 MG TABLET (FP) PO SCH (21:02)
[2018-10-05] MEDS: MIRTAZAPINE 15 MG TABLET (FP) PO SCH (21:02)
[2018-10-05] MEDS: hydrOXYzine PAMOATE 25 MG CAPSULE (FP) PO PRN (21:03)
[2018-10-06] MEDS ORDERED: PT OWN MED DRAWER 7, Y5N ONE ×2 (08:48→21:11)
[2018-10-06] MEDS: OFLOXACIN 0.3% OTIC SOLUTION 5 ML BOTTLE AD SCH ×2 (10:23→21:11)
[2018-10-06] MEDS: amLODIPine BESYLATE 10 MG TABLET (FP) PO SCH (10:23)
[2018-10-06] MEDS: PRENATAL VITAMINS W/ FOLIC ACID TABLET (FP) PO SCH (10:24)
[2018-10-06] MEDS: POTASSIUM CHLORIDE TABS 20 MEQ TABLET.ER (FP) PO SCH (10:24)
[2018-10-06] MEDS: ASPIRIN 81 MG CHEWABLE TABLETS PO SCH (10:24)
[2018-10-06] MEDS: THIAMINE HCL 100 MG TABLET (FP) PO SCH (21:09)
[2018-10-06] MEDS: hydrOXYzine PAMOATE 25 MG CAPSULE (FP) PO PRN (21:10)
[2018-10-06] MEDS: MIRTAZAPINE 15 MG TABLET (FP) PO SCH (21:10)
[2018-10-07] MEDS ORDERED: PT OWN MED DRAWER 7, Y5N ONE ×2 (08:26→19:52)
[2018-10-07] MEDS: PRENATAL VITAMINS W/ FOLIC ACID TABLET (FP) PO SCH (10:12)
[2018-10-07] MEDS: OFLOXACIN 0.3% OTIC SOLUTION 5 ML BOTTLE AD SCH ×2 (10:12→21:06)
[2018-10-07] MEDS: amLODIPine BESYLATE 10 MG TABLET (FP) PO SCH (10:12)
[2018-10-07] MEDS: ASPIRIN 81 MG CHEWABLE TABLETS PO SCH (10:12)
[2018-10-07] MEDS: MIRTAZAPINE 15 MG TABLET (FP) PO SCH (21:06)
[2018-10-07] MEDS: THIAMINE HCL 100 MG TABLET (FP) PO SCH (21:06)
[2018-10-07] MEDS: hydrOXYzine PAMOATE 25 MG CAPSULE (FP) PO PRN (21:07)
[2018-10-08] MEDS: amLODIPine BESYLATE 10 MG TABLET (FP) PO SCH (10:03)
[2018-10-08] MEDS: OFLOXACIN 0.3% OTIC SOLUTION 5 ML BOTTLE AD SCH ×2 (10:03→21:00)
[2018-10-08] MEDS: ASPIRIN 81 MG CHEWABLE TABLETS PO SCH (10:03)
[2018-10-08] MEDS: PRENATAL VITAMINS W/ FOLIC ACID TABLET (FP) PO SCH (10:03)
[2018-10-08 10:25] LABS: ALBUMIN 3.9 g/dl (3.4-5.0); ALK PHOS 266 U/L (45-117); ANION GAP 7 MMOL/L (8-16); BILIRUBIN,TOTAL 0.6 mg/dL (0.2-1); BLOOD UREA NITROGEN 18 mg/dL (7-18); CALCIUM 9.4 mg/dL (8.5-10.1); CHLORIDE 107 mmol/L (98-107); CO2 26 mmol/L (21-32); GLUCOSE,RANDOM 96 mg/dL (74-106); SGOT/AST 93 U/L (15-37); SGPT/ALT 141 U/L (13-61); SODIUM 140 mmol/L (136-145); TOT PROT 7.6 g/dl (6.4-8.2)
--- NOTE | 2018-10-08 11:40 | PN ---
[facility] Progress Note Note: Laboratory Tests 10/01/18 10/02/18 10/02/18 13:10 08:30 08:30 WBC 3.0 L RBC 5.45 H Hgb 14.4 Hct 43.5 MCV 79.8 L MCH 26.5 MCHC 33.1 RDW 14.4 Plt Count 174 MPV 10.3 Sodium 142 Potassium 3.4 L Chloride 110 H Carbon Dioxide 25 Anion Gap 7 L BUN 11 Creatinine 1.1 Creat Clearance w eGFR 51.02 POC Glucometer Random Glucose 146 H Calcium 9.5 Total Bilirubin 0.8 AST 59 H ALT 93 H Alkaline Phosphatase 217 H Total Protein 7.5 Albumin 3.9 Urine Color Yellow Urine Appearance Clear Urine pH 5.0 Ur Specific [place] 1.020 Urine Protein Negative Urine Glucose (UA) Negative Urine Ketones Negative Urine Blood Negative Urine Nitrite Negative Urine Bilirubin Negative Urine Urobilinogen 2.0 H Ur Leukocyte Esterase Negative RPR Titer T.pallidum Ab (A) 10/02/18 10/04/18 10/05/18 08:30 06:49 07:08 WBC RBC Hgb Hct MCV MCH MCHC RDW Plt Count MPV Sodium Potassium Chloride Carbon Dioxide Anion Gap BUN Creatinine Creat Clearance w eGFR POC Glucometer 89 88 Random Glucose Calcium Total Bilirubin AST ALT Alkaline Phosphatase Total Protein Albumin Urine Color Urine Appearance Urine pH Ur Specific [place] Urine Protein Urine Glucose (UA) Urine Ketones Urine Blood Urine Nitrite Urine Bilirubin Urine Urobilinogen Ur Leukocyte Esterase RPR Titer Reactive 1:2 H T.pallidum Ab (A) Non reactive 10/05/18 10/06/18 10/07/18 08:40 06:47 06:25 WBC RBC Hgb Hct MCV MCH MCHC RDW Plt Count MPV Sodium 142 Potassium 3.5 Chloride 108 H Carbon Dioxide 25 Anion Gap 9 BUN 12 Creatinine 1.0 Creat Clearance w eGFR 56.95 POC Glucometer 93 72 Random Glucose 123 H Calcium 9.0 Total Bilirubin 0.6 AST 114 H ALT 158 H Alkaline Phosphatase 247 H Total Protein 7.1 Albumin 3.7 Urine Color Urine Appearance Urine pH Ur Specific [place] Urine Protein Urine Glucose (UA) Urine Ketones Urine Blood Urine Nitrite Urine Bilirubin Urine Urobilinogen Ur Leukocyte Esterase RPR Titer T.pallidum Ab ([facility]) 10/08/18 07:40 WBC RBC Hgb Hct MCV MCH MCHC RDW Plt Count MPV Sodium 140 Potassium 4.0 Chloride 107 Carbon Dioxide 26 Anion Gap 7 L BUN 18 Creatinine 1.0 Creat Clearance w eGFR 56.95 POC Glucometer Random Glucose 96 Calcium 9.4 Total Bilirubin 0.6 AST 93 H ALT 141 H Alkaline Phosphatase 266 H Total Protein 7.6 Albumin 3.9 Urine Color Urine Appearance Urine pH Ur Specific [place] Urine Protein Urine Glucose (UA) Urine Ketones Urine Blood Urine Nitrite Urine Bilirubin Urine Urobilinogen Ur Leukocyte Esterase RPR Titer T.pallidum Ab ([facility]) LABS APPRECIATED. LFTS ELEVATED BUT REDUCED WHEN COMPARED TO PREVIOUS LABS. WILL CONTINUE ORAL FLUIDS AND MONITOR CLINICALLY. Vital Signs Temperature 98.2 F 10/08/18 06:54 Pulse Rate 97 H 10/08/18 10:00 Respiratory Rate 16 10/08/18 06:54 Blood Pressure 123/71 10/08/18 10:00 O2 Sat by Pulse Oximetry (%)
[2018-10-08] MEDS: THIAMINE HCL 100 MG TABLET (FP) PO SCH (20:59)
[2018-10-08] MEDS: MELATONIN 5 MG TABLETS PO PRN (20:59)
[2018-10-08] MEDS: MIRTAZAPINE 15 MG TABLET (FP) PO SCH (20:59)
[2018-10-09] MEDS: PRENATAL VITAMINS W/ FOLIC ACID TABLET (FP) PO SCH (09:57)
[2018-10-09] MEDS: amLODIPine BESYLATE 10 MG TABLET (FP) PO SCH (09:57)
[2018-10-09] MEDS: ASPIRIN 81 MG CHEWABLE TABLETS PO SCH (09:58)
[2018-10-09] MEDS ORDERED: PT OWN MED DRAWER 7, Y5N ONE ×2 (09:58→19:52)
[2018-10-09] MEDS: OFLOXACIN 0.3% OTIC SOLUTION 5 ML BOTTLE AD SCH ×2 (09:58→21:09)
--- NOTE | 2018-10-09 14:16 | PN ---
Psychiatric Progress Note Vital Signs: Vital Signs Period Temp Pulse Resp BP Sys/Wolff Pulse Ox Last 24 Hr 98.1 F 84-91 16-16 110-138/72-89 Date of Session: 10/09/18 Chief Complaint:: "I can't sleep" HPI: Patient with history of Bipolsr Disorder and cocaine abuse admitted to this unit on 10/02/18 for inpatient rehabilitation ROS: HTN, PPD+ treated. Anemia Current Medications: Active Medications Generic Name Dose Route Start Last Admin Trade Name Freq PRN Reason Stop Dose Admin Acetaminophen 650 mg 10/01/18 15:50 Tylenol - PO Q4H PRN FEVER Al Hydroxide/Mg Hydroxide 30 ml 10/01/18 15:50 Mylanta Oral Suspension - PO Q6H PRN DYSPEPSIA Amlodipine Besylate 10 mg 10/02/18 10:00 10/09/18 09:57 Norvasc - PO 10 mg DAILY CHRISTINE Administration Aspirin 81 mg 10/02/18 10:00 10/09/18 09:58 Asa - PO 81 mg DAILY CHRISTINE Administration Colloidal Oatmeal 1 applic 10/04/18 11:33 10/05/18 07:13 Aveeno Soap - TP 1 applic DAILY PRN Administration HYGEINE Eucalyptus/Menthol/Phenol/Sorbitol 1 each 10/01/18 15:50 Cepastat Lozenge - MM Q4H PRN SORE THROAT Guaifenesin 10 ml 10/01/18 15:50 Robitussin - PO Q6H PRN COUGH Hydroxyzine Pamoate 25 mg 10/01/18 15:50 10/07/18 21:07 Vistaril - PO 25 mg Q4H PRN Administration AGITATION Ibuprofen 400 mg 10/01/18 15:50 10/05/18 08:29 Motrin - PO 400 mg Q6H PRN Administration Pain level 4-6 Loperamide HCl 4 mg 10/01/18 15:50 Imodium - PO Q6H PRN DIARRHEA Magnesium Citrate 300 ml 10/01/18 15:50 Citroma - PO Q48H PRN CONSTIPATION Magnesium Hydroxide 30 ml 10/01/18 15:50 Milk Of Magnesia - PO DAILY PRN CONSTIPATION Melatonin 5 mg 10/01/18 22:00 10/08/18 20:59 Melatonin PO 5 mg HS PRN Administration INSOMNIA Mirtazapine 15 mg 10/02/18 22:00 10/08/18 20:59 Remeron - PO 15 mg HS CHRISTIEN Administration Ofloxacin 3 drop 10/05/18 11:45 10/09/18 09:58 Floxin Otic (Ear) Solution - AD 10/10/18 11:44 3 dropper BID CHRISTINE Administration Multivit/Folic Acid/Iron 1 tab 10/02/18 10:00 10/09/18 09:57 Vitamins (Sjr) - PO 1 tab DAILY CHRISTINE Administration Pseudoephedrine/Triprolidine 1 combo 10/01/18 15:50 Actifed - PO TID PRN NASAL CONGESTION Thiamine HCl 100 mg 10/01/18 22:00 10/08/18 20:59 Vitamin B1 - PO 100 mg HS CHRISTINE Administration Current Side Effect: No Lab tests ordered: Yes Lab tests reviewed: Yes Provider note:: Patient reports experiencing difficulty to sleep despite taking Remeron 15 mg at bedtime. Admits that she has not been requesting Melatonin for sleep. she was instructed to request Melatonin if needed for insomnia. Total face to face time:: 15 Mental Status Exam - Mental Status Exam Alert and Oriented to: Time, Place, Person Cognitive Function: Fair Patient Appearance: Well Groomed Mood: Hopeful, Euthymic Affect: Appropriate Patient Behavior: Cooperative Speech Pattern: Clear Voice Loudness: Normal Thought Process: Intact Thought Disorder: Not Present Hallucinations: Denies Suicidal Ideation: Denies Homicidal Ideation: Denies Insight/Judgement: Fair Sleep: Poorly Appetite: Good Muscle strength/Tone: Normal Gait/Station: Normal Psychiatric Treatment Plan - Problem List (1) Bipolar disorder Current Visit: Yes (2) Substance-induced sleep disorder Current Visit: Yes (3) Cocaine dependence Current Visit: Yes Qualifiers: Substance use status: uncomplicated Qualified Code(s): F14.20 - Cocaine dependence, uncomplicated (4) Nicotine dependence Current Visit: Yes Qualifiers: Nicotine product type: cigarettes Substance use status: in withdrawal Qualified Code(s): F17.213 - Nicotine dependence, cigarettes, with withdrawal (5) Hypertension Current Visit: Yes Qualifiers: Hypertension type: essential hypertension Qualified Code(s): I10 - Essential (primary) hypertension (6) Positive PPD, treated Current Visit: Yes (7) Anemia Current Visit: Yes Initial treatment plan: 1) Continue Remeron 15 mg po HS. 2) Instructed to request Melatonin 5 mg po HS prn for insomnia. 3) Continue inpatient rehabilitation
[2018-10-09] MEDS: THIAMINE HCL 100 MG TABLET (FP) PO SCH (21:08)
[2018-10-09] MEDS: MIRTAZAPINE 15 MG TABLET (FP) PO SCH (21:08)
[2018-10-09] MEDS: MELATONIN 5 MG TABLETS PO PRN (21:08)
[2018-10-10] MEDS: PRENATAL VITAMINS W/ FOLIC ACID TABLET (FP) PO SCH (09:59)
[2018-10-10] MEDS: amLODIPine BESYLATE 10 MG TABLET (FP) PO SCH (09:59)
[2018-10-10] MEDS: OFLOXACIN 0.3% OTIC SOLUTION 5 ML BOTTLE AD SCH (09:59)
[2018-10-10] MEDS: ASPIRIN 81 MG CHEWABLE TABLETS PO SCH (09:59)
--- NOTE | 2018-10-10 11:29 | PN ---
S Progress Note Note: Reviewed labs with patient; liver enzymes slightly elevated. All labs taken after patient had eaten. Denies hx of liver disease or ETOH abuse. Instructed patient to increase fluid intake.
[2018-10-10] MEDS: MIRTAZAPINE 15 MG TABLET (FP) PO SCH (21:27)
[2018-10-10] MEDS: MELATONIN 5 MG TABLETS PO PRN (21:27)
[2018-10-10] MEDS: THIAMINE HCL 100 MG TABLET (FP) PO SCH (21:27)
[2018-10-11] MEDS: IBUPROFEN 400 MG TABLET (FP) PO PRN (08:37)
[2018-10-11] MEDS: ASPIRIN 81 MG CHEWABLE TABLETS PO SCH (09:10)
[2018-10-11] MEDS: amLODIPine BESYLATE 10 MG TABLET (FP) PO SCH (09:11)
[2018-10-11] MEDS: PRENATAL VITAMINS W/ FOLIC ACID TABLET (FP) PO SCH (09:11)
[2018-10-11] MEDS: THIAMINE HCL 100 MG TABLET (FP) PO SCH (21:08)
[2018-10-11] MEDS: MIRTAZAPINE 15 MG TABLET (FP) PO SCH (21:08)
[2018-10-12] MEDS: COLLOIDAL OATMEAL 1 BAR EACH TP PRN (06:38)
[2018-10-12] MEDS: PRENATAL VITAMINS W/ FOLIC ACID TABLET (FP) PO SCH (09:58)
[2018-10-12] MEDS: amLODIPine BESYLATE 10 MG TABLET (FP) PO SCH (09:58)
[2018-10-12] MEDS: ASPIRIN 81 MG CHEWABLE TABLETS PO SCH (09:58)
--- NOTE | 2018-10-12 13:08 | PN ---
[facility] Progress Note Note: PATIENT SEEN FOR C/O DRY SKIN AND DIETARY RECOMMENDATION TO CHANGE SUPPLEMENT TO ENSURE. PATIENT DENIES ITCHING AND RASHES TO SKIN. Laboratory Tests 10/01/18 10/02/18 10/02/18 13:10 08:30 08:30 WBC 3.0 L RBC 5.45 H Hgb 14.4 Hct 43.5 MCV 79.8 L MCH 26.5 MCHC 33.1 RDW 14.4 Plt Count 174 MPV 10.3 Sodium 142 Potassium 3.4 L Chloride 110 H Carbon Dioxide 25 Anion Gap 7 L BUN 11 Creatinine 1.1 Creat Clearance w eGFR 51.02 POC Glucometer Random Glucose 146 H Calcium 9.5 Total Bilirubin 0.8 AST 59 H ALT 93 H Alkaline Phosphatase 217 H Total Protein 7.5 Albumin 3.9 Urine Color Yellow Urine Appearance Clear Urine pH 5.0 Ur Specific [place] 1.020 Urine Protein Negative Urine Glucose (UA) Negative Urine Ketones Negative Urine Blood Negative Urine Nitrite Negative Urine Bilirubin Negative Urine Urobilinogen 2.0 H Ur Leukocyte Esterase Negative RPR Titer T.pallidum Ab (A) 10/02/18 10/04/18 10/05/18 08:30 06:49 07:08 WBC RBC Hgb Hct MCV MCH MCHC RDW Plt Count MPV Sodium Potassium Chloride Carbon Dioxide Anion Gap BUN Creatinine Creat Clearance w eGFR POC Glucometer 89 88 Random Glucose Calcium Total Bilirubin AST ALT Alkaline Phosphatase Total Protein Albumin Urine Color Urine Appearance Urine pH Ur Specific [place] Urine Protein Urine Glucose (UA) Urine Ketones Urine Blood Urine Nitrite Urine Bilirubin Urine Urobilinogen Ur Leukocyte Esterase RPR Titer Reactive 1:2 H T.pallidum Ab ([facility]) Non reactive 10/05/18 10/06/18 10/07/18 08:40 06:47 06:25 WBC RBC Hgb Hct MCV MCH MCHC RDW Plt Count MPV Sodium 142 Potassium 3.5 Chloride 108 H Carbon Dioxide 25 Anion Gap 9 BUN 12 Creatinine 1.0 Creat Clearance w eGFR 56.95 POC Glucometer 93 72 Random Glucose 123 H Calcium 9.0 Total Bilirubin 0.6 AST 114 H ALT 158 H Alkaline Phosphatase 247 H Total Protein 7.1 Albumin 3.7 Urine Color Urine Appearance Urine pH Ur Specific [place] Urine Protein Urine Glucose (UA) Urine Ketones Urine Blood Urine Nitrite Urine Bilirubin Urine Urobilinogen Ur Leukocyte Esterase RPR Titer T.pallidum Ab ([facility]) 10/08/18 07:40 WBC RBC Hgb Hct MCV MCH MCHC RDW Plt Count MPV Sodium 140 Potassium 4.0 Chloride 107 Carbon Dioxide 26 Anion Gap 7 L BUN 18 Creatinine 1.0 Creat Clearance w eGFR 56.95 POC Glucometer Random Glucose 96 Calcium 9.4 Total Bilirubin 0.6 AST 93 H ALT 141 H Alkaline Phosphatase 266 H Total Protein 7.6 Albumin 3.9 Urine Color Urine Appearance Urine pH Ur Specific [place] Urine Protein Urine Glucose (UA) Urine Ketones Urine Blood Urine Nitrite Urine Bilirubin Urine Urobilinogen Ur Leukocyte Esterase RPR Titer T.pallidum Ab ([facility]) PE: ALERT AND ORIENTED X 3 SKIN WARM AND DRY EXT FULL ROM AMB AD VENKAT A/P: DRY SKIN BGM WNL RANGE 72-93 ELEVATED LFTS WILL ORDER EUCERIN CREAM FOR DRY SKIN D/C GLUCERNA START ENSURE 1 CAN BID REPEAT CMP ON 10/16/18
[2018-10-12] MEDS: THIAMINE HCL 100 MG TABLET (FP) PO SCH (21:21)
[2018-10-12] MEDS: MIRTAZAPINE 15 MG TABLET (FP) PO SCH (21:21)
[2018-10-12] MEDS: MINERAL OIL/PETROLAT/WATER TOPICAL CREAM 113 GM JAR TP SCH (21:24)
[2018-10-13] MEDS: ASPIRIN 81 MG CHEWABLE TABLETS PO SCH (09:38)
[2018-10-13] MEDS: amLODIPine BESYLATE 10 MG TABLET (FP) PO SCH (09:38)
[2018-10-13] MEDS: PRENATAL VITAMINS W/ FOLIC ACID TABLET (FP) PO SCH (09:38)
[2018-10-13] MEDS ORDERED: PT OWN MED DRAWER 7, Y5N ONE (09:39)
[2018-10-13] MEDS: MINERAL OIL/PETROLAT/WATER TOPICAL CREAM 113 GM JAR TP SCH ×2 (09:40→21:00)
[2018-10-13] MEDS: MIRTAZAPINE 15 MG TABLET (FP) PO SCH (21:00)
[2018-10-13] MEDS: THIAMINE HCL 100 MG TABLET (FP) PO SCH (21:00)
[2018-10-14] MEDS: amLODIPine BESYLATE 10 MG TABLET (FP) PO SCH (09:24)
[2018-10-14] MEDS: PRENATAL VITAMINS W/ FOLIC ACID TABLET (FP) PO SCH (09:24)
[2018-10-14] MEDS: MINERAL OIL/PETROLAT/WATER TOPICAL CREAM 113 GM JAR TP SCH ×2 (09:25→21:02)
[2018-10-14] MEDS: ASPIRIN 81 MG CHEWABLE TABLETS PO SCH (09:25)
[2018-10-14 10:51] LABS: ALK PHOS 370 U/L (45-117); ANION GAP 6 MMOL/L (8-16); BILIRUBIN,TOTAL 0.6 mg/dL (0.2-1); BLOOD UREA NITROGEN 13 mg/dL (7-18); CALCIUM 9.2 mg/dL (8.5-10.1); CHLORIDE 106 mmol/L (98-107); CO2 28 mmol/L (21-32); CREATININE 0.8 mg/dL (0.55-1.3); GLUCOSE,RANDOM 96 mg/dL (74-106); POTASSIUM 4.6 mmol/L (3.5-5.1); SGOT/AST 152 U/L (15-37); SGPT/ALT 244 U/L (13-61); SODIUM 140 mmol/L (136-145); TOT PROT 7.9 g/dl (6.4-8.2)
--- NOTE | 2018-10-14 16:48 | PN ---
S Progress Note Note: Patient is scheduled for discharged tomorrow. Script for 30 days supply of Mirtazapine 15 mg po HS will be electronically transmitted to [facility] at [address] [place] [address]
[2018-10-14] MEDS: IBUPROFEN 400 MG TABLET (FP) PO PRN (17:18)
[2018-10-14] MEDS ORDERED: PT OWN MED DRAWER 7, Y5N ONE (19:28)
[2018-10-14] MEDS: THIAMINE HCL 100 MG TABLET (FP) PO SCH (21:01)
[2018-10-14] MEDS: MIRTAZAPINE 15 MG TABLET (FP) PO SCH (21:01)
[2018-10-15 07:04] VITALS: BP 121/84; PULSE 89; TEMP 98.7
[2018-10-15] MEDS ORDERED: PT OWN MED DRAWER 7, Y5N ONE (08:26)
[2018-10-15] MEDS: amLODIPine BESYLATE 10 MG TABLET (FP) PO SCH (09:03)
[2018-10-15] MEDS: ASPIRIN 81 MG CHEWABLE TABLETS PO SCH (09:03)
[2018-10-15] MEDS: PRENATAL VITAMINS W/ FOLIC ACID TABLET (FP) PO SCH (09:03)
[2018-10-15] MEDS: MINERAL OIL/PETROLAT/WATER TOPICAL CREAM 113 GM JAR TP SCH (09:04)
--- NOTE | 2018-10-15 11:33 | PN ---
[facility] Progress Note Note: PT COMPLETED REHAB AND DISCHARGED TODAY. PT MET WITH COUNSELOR AND WAS REFERRED TO [facility] FOR CD AFTERCARE. ALERT O X 3. DENIES S/H/I. COURTESY RX ELECTRONICALLY SENT TO PT'S PHARMACY FOR PICKUP. Home Medications Medication Instructions Recorded Amlodipine Besylate [Norvasc -] 10 mg PO DAILY 11/15/17 Losartan/Hydrochlorothiazide 1 each PO DAILY 01/23/18 [Losartan-Hctz 50-12.5 mg Tab] Losartan/Hydrochlorothiazide 25 mg PO DAILY #30 tablet 02/05/18 [Losartan-Hctz 50-12.5 mg Tab] Mirtazapine [Remeron -] 15 mg PO HS #30 tablet 02/05/18 Mirtazapine [Remeron -] 15 mg PO HS #30 tablet 10/14/18 Amlodipine Besylate [Norvasc -] 10 mg PO DAILY #30 tablet 10/15/18 Aspirin [Kathryn Chewable Aspirin] 81 mg PO DAILY #30 tab.chew 10/15/18 Vital Signs (72 hours) 10/13/18 10/13/18 10/13/18 00:30 03:30 07:13 Temperature 97.8 F Pulse Rate 86 Respiratory 16 16 16 Rate Blood Pressure 133/83 10/13/18 10/14/18 10/14/18 09:00 00:30 03:30 Temperature Pulse Rate 89 Respiratory 16 16 16 Rate Blood Pressure 135/84 10/14/18 10/14/18 10/15/18 07:05 09:19 00:30 Temperature 98.1 F Pulse Rate 96 H 92 H Respiratory 16 18 16 Rate Blood Pressure 114/74 119/74 10/15/18 10/15/18 03:30 07:03 Temperature 98.7 F Pulse Rate 89 Respiratory 16 18 Rate Blood Pressure 121/84 Laboratory Tests 10/01/18 10/02/18 10/02/18 13:10 08:30 08:30 WBC 3.0 L RBC 5.45 H Hgb 14.4 Hct 43.5 MCV 79.8 L MCH 26.5 MCHC 33.1 RDW 14.4 Plt Count 174 MPV 10.3 Sodium 142 Potassium 3.4 L Chloride 110 H Carbon Dioxide 25 Anion Gap 7 L BUN 11 Creatinine 1.1 Creat Clearance w eGFR 51.02 POC Glucometer Random Glucose 146 H Calcium 9.5 Total Bilirubin 0.8 AST 59 H ALT 93 H Alkaline Phosphatase 217 H Total Protein 7.5 Albumin 3.9 Urine Color Yellow Urine Appearance Clear Urine pH 5.0 Ur Specific [place] 1.020 Urine Protein Negative Urine Glucose (UA) Negative Urine Ketones Negative Urine Blood Negative Urine Nitrite Negative Urine Bilirubin Negative Urine Urobilinogen 2.0 H Ur Leukocyte Esterase Negative RPR Titer T.pallidum Ab ([facility]) 10/02/18 10/04/18 10/05/18 08:30 06:49 07:08 WBC RBC Hgb Hct MCV MCH MCHC RDW Plt Count MPV Sodium Potassium Chloride Carbon Dioxide Anion Gap BUN Creatinine Creat Clearance w eGFR POC Glucometer 89 88 Random Glucose Calcium Total Bilirubin AST ALT Alkaline Phosphatase Total Protein Albumin Urine Color Urine Appearance Urine pH Ur Specific [place] Urine Protein Urine Glucose (UA) Urine Ketones Urine Blood Urine Nitrite Urine Bilirubin Urine Urobilinogen Ur Leukocyte Esterase RPR Titer Reactive 1:2 H T.pallidum Ab ([facility]) Non reactive 10/05/18 10/06/18 10/07/18 08:40 06:47 06:25 WBC RBC Hgb Hct MCV MCH MCHC RDW Plt Count MPV Sodium 142 Potassium 3.5 Chloride 108 H Carbon Dioxide 25 Anion Gap 9 BUN 12 Creatinine 1.0 Creat Clearance w eGFR 56.95 POC Glucometer 93 72 Random Glucose 123 H Calcium 9.0 Total Bilirubin 0.6 AST 114 H ALT 158 H Alkaline Phosphatase 247 H Total Protein 7.1 Albumin 3.7 Urine Color Urine Appearance Urine pH Ur Specific [place] Urine Protein Urine Glucose (UA) Urine Ketones Urine Blood Urine Nitrite Urine Bilirubin Urine Urobilinogen Ur Leukocyte Esterase RPR Titer T.pallidum Ab ([facility]) 10/08/18 10/14/18 07:40 07:20 WBC RBC Hgb Hct MCV MCH MCHC RDW Plt Count MPV Sodium 140 140 Potassium 4.0 4.6 Chloride 107 106 Carbon Dioxide 26 28 Anion Gap 7 L 6 L BUN 18 13 Creatinine 1.0 0.8 Creat Clearance w eGFR 56.95 73.67 POC Glucometer Random Glucose 96 96 Calcium 9.4 9.2 Total Bilirubin 0.6 0.6 AST 93 H 152 H ALT 141 H 244 H Alkaline Phosphatase 266 H 370 H Total Protein 7.6 7.9 Albumin 3.9 4.0 Urine Color Urine Appearance Urine pH Ur Specific [place] Urine Protein Urine Glucose (UA) Urine Ketones Urine Blood Urine Nitrite Urine Bilirubin Urine Urobilinogen Ur Leukocyte Esterase RPR Titer T.pallidum Ab ([facility]) PT WAS GIVEN A COPY OF LAB RESULTS AND INSTRUCTED TO TAKE IT TO HIS PRIMARY CARE PROVIDER FOR FURTHER EVALUATION AND MEDICAL MANAGEMENT. NAD MEDICALLY STABLE PLAN:FOLLOW UP WITH CD/MEDICAL MANAGEMENT AT [facility] RECOMMENDED. D/C DX Cocaine dependence (Acute) Weight loss (Acute) Hypertension (Chronic) Nicotine dependence (Chronic)
== END 2018-10-15 09:07 | disposition home or self-care (01) | DRG 772 ==
LOC: YASAS 12:25 → Y3E 17:27
PROVIDERS: ADMIT Neuromusculoskeletal Medicine & OMM; ATTEND Neuromusculoskeletal Medicine & OMM
PROC: HZ42ZZZ Group Counseling for Substance Abuse Treatment, Cognitive-Behavioral (ICD-10-PCS; principal; 2018-10-01)
DX: F14.20 Cocaine dependence, uncomplicated (principal); F17.210 Nicotine dependence, cigarettes, uncomplicated; F31.9 Bipolar disorder, unspecified; F19.282 Other psychoactive substance dependence with psychoactive substance-induced sleep disorder; I10 Essential (primary) hypertension; D64.9 Anemia, unspecified; R63.4 Abnormal weight loss; E46 Unspecified protein-calorie malnutrition; R94.5 Abnormal results of liver function studies; R76.11 Nonspecific reaction to tuberculin skin test without active tuberculosis; G47.00 Insomnia, unspecified; H66.91 Otitis media, unspecified, right ear; E87.6 Hypokalemia; R73.9 Hyperglycemia, unspecified; Z87.42 Personal history of other diseases of the female genital tract; Z88.0 Allergy status to penicillin; Z59.0 Homelessness
CPT/HCPCS: 36415; 80053; 81003; 82962; 85027; 86593; 86780; 90688; G0008